=== PATIENT | female | born 1930 | race Caucasian/White ===

== ENCOUNTER 2020-11-17 19:01 | Inpatient (IN) | payer MEDICARE, BC ==
[~2020-11-17] VITALS: Ht 160 cm; Wt 45.3 kg
[2020-11-17] MEDS ORDERED: IV RINGERS SOLUTION,LACTATED 1,000 ML IV SCH (19:15)
--- NOTE | 2020-11-17 20:20 | RAD ---
Examination: CT head and cervical spine without contrast CT HEAD INDICATION: Reason: fall, on anticoag. syncope COMPARISON: None Available. Exposure: One or more of the following individualized dose reduction techniques were utilized for thi s examination: 1. Automated exposure control 2. Adjustment of the mA and/or kV according to patient size 3. Use of iterative reconstruction technique TECHNIQUE: 5 mm contiguous axial images were obtained from the skull base to the vertex in both bone and soft tissue algorithm. FINDINGS: No abnormal attenuation within the brain parenchyma. No evidence of acute intracranial hemorrhage. No extra-axial fluid collections. No mass effect or midline shift. Ventricular size is appropriate. Basal cisterns are patent. No fractures identified.Posey-white differentiation is preserved.Globes and orbits are within normal l imits. Paranasal sinuses and mastoid air cells are clear. IMPRESSION: No acute intracranial findings. CT CERVICAL SPINE INDICATION: Reason: fall, on anticoag. syncope COMPARISON: None Available. Technique: 2.5 mm contiguous axial images were obtained from the skull base through the cervicothorac ic junction in both bone and soft tissue algorithm. Additional sagittal and coronal reconstructions were also performed. FINDINGS: Vertebral body height and alignment are maintained. Cervical lordosis is preserved. The l ateral masses of C1 are aligned upon C2. No fractures identified. The bony canal is patent throughout. Moderate intervertebral disc height loss identified in the cervical spine particularly at C5-C6, C6-C 7 vertebral levels. The paraspinous soft tissues are unremarkable. Visualized intracranial contents are unremarkable. L indu apices are clear. IMPRESSION: 1. No acute fracture cervical spine. Correlate clinically. 2. Moderate degenerative changes cervical spine most at C5-C6, C6-C7 vertebral levels. Electronically signed by: Laureano Hamilton MD (11/17/2020 8:18 PM) [email or web address]
--- NOTE | 2020-11-17 20:23 | PHYS DOC ---
Past History Past Medical History: Anxiety, Arthritis, CAD, CHF, Renal Disease, Other Past Medical History Chronic pain General Adult EDM: Chief Complaint: NEURO SYMPTOMS/DEFICITS HPI: HPI: ".. I fell yesterday... hit my head.... here on Rt.... and tripped again to day.. and fell...".. "My Lt knee hurts.. this Lt shoulder hurts.. but they hurt before.. just hurt more now.. " " My family sent me in...".. " I do fall a lot...".. " I am just so weak any more...".. I ve been a lot more short of breath too..." Patient is a 89 year old female who presents with above hx and complaints fall daily the last two days. Pt. did strike head on both falls. Patient denies any loss of consciousness with the head injuries. Patient has left shoulder and left knee pain. Pain is more than the chronic pain she has in these joints. Denies any syncope or disability prior to the fall. States falls were because combination of trip and general weakness. Patient complaining of increased weakness particularly last 2 days and increased dyspnea. Patient normally follows locally with Dr. Diaz. Patient denies any specific ill contacts recently. No recent travel outside the [place] area. Patient denies any immunosuppression. Patient has history of chronic degenerative joint changes particularly in the knees and shoulders. Patient monitor on arrival shows tachycardia that KCl premature atrial contractions and PVCs. Patient reportedly has had extensive med intolerance/allergy list which was not available on arriv al to the emergency department. Patient does have multiple areas of contusion in different stages of healing. ( Suspect pt. falls more than she admits ). Review of Systems: Review of Systems: Constitutional: Denies fever or chills Eyes: Denies change in visual acuity HENT: Denies nasal congestion or sore throat Respiratory: Complains of a nonproductive cough and shortness of breath Cardiovascular: Denies chest pain or edema GI: Denies abdominal pain, nausea, vomiting, bloody stools or diarrhea : Denies dysuria Musculoskeletal: Complains of generalized back pain and joint pain. Increased pain in left shoulder and left knee tonight Integument: Denies rash Neurologic: Denies headache, focal weakness or sensory changes . Complains of generalized weakness Endocrine: Denies polyuria or polydipsia Lymphatic: Denies swollen glands Psychiatric: Denies depression or anxiety Family History: Family History: Not currently available Current Medications: Current Meds: No current med list available on presentation Current Medications Medications (Trade) Dose Ordered Sig/[place] Start Time Stop Time Status Last Admin Dose Admin Lactated Ringer's 1,000 ml @ 100 mls/hr Q10H 11/17/20 19:15 11/18/20 05:14 UNV Allergies: Allergies: Reportedly extensive allergies and sensitivities to drugs-currently is not currently available Physical Exam: PE: Constitutional: Moderate acute distress, chronically ill and appearance. [] HENT: Normocephalic, contusion to right side of head-reportedly 2 days old, bilateral external ears normal, oropharynx moist, no oral exudates, nose normal. [] Eyes: PERRLA, EOMI, conjunctiva normal, no discharge. [] Neck: Decreased range of motion, some mild upper neck tenderness, supple, no stridor. [] JVD in the sitting position. Cardiovascular: Tachycardia heart rate irregular r rhythm, no murmur [] PMI to the left Lungs & Thorax: Bilateral breath sounds equal at apex with scattered wheezes and bilateral lateral basilar crackles on auscultation [] Abdomen: Bowel sounds decreased, soft, no tenderness, no masses, no pulsatile masses. Distended Skin: Warm, dry, no erythema, no rash. Poor turgor. Multiple areas of contusions which appear to be at different stages of healing. Back: No tenderness, no CVA tenderness. [] Extremities: Particular tenderness in left shoulder and left knee tenderness, no cyanosis, no clubbing, limits range of motion due to pain. Does have crepitation on movement of both shoulders and knees. Localizes primary area of discomfort however in left shoulder and left knee. Obvious arthritic changes and degenerative joint changes Neurologic: Alert and oriented X 3, moves all extremities on request, does appear to have distal sensory, no gross focal deficits noted. [] Psychologic: Affect argumentative, uncooperative on occasion, angry at times, stating she should not have come in,, mood depressed affect EKG: EKG: My interpretation EKG shows a sinus rhythm at 97 bpm does have atrial premature complexes bimodal P waves, left axis, fascicular block, prolonged QT interval at 374 ms and QTC is 479 ms . Abnormal -could not find a previous comparison EKG [] Radiology/Procedures: Radiology/Procedures: [address] [address] IMAGING REPORT Signed PATIENT: NEGRO SWANN ACCOUNT: [id number] : 1930 LOCATION: ER AGE: 89 SEX: F EXAM STATUS: REG ER ORD. PHYSICIAN: JACKELYN KEITH MD REASON: fall, on anticoag. ? syncope PROCEDURE: CT HEAD AND CERVICAL SPINE WO Examination: CT head and cervical spine without contrast CT HEAD INDICATION: Reason: fall, on anticoag. syncope COMPARISON: None Available. Exposure: One or more of the following individualized dose reduction techniques were utilized for this examination: 1. Automated exposure control 2. Adjustment of the mA and/or kV according to patient size 3. Use of iterative reconstruction technique TECHNIQUE: 5 mm contiguous axial images were obtained from the skull base to the vertex in both bone and soft tissue algorithm. FINDINGS: No abnormal attenuation within the brain parenchyma. No evidence of acute intracranial hemorrhage. No extra-axial fluid collections. No mass effect or midline shift. Ventricular size is appropriate. Basal cisterns are patent. No fractures identified.Posey-white differentiation is preserved.Globes and orbits are within normal limits. Paranasal sinuses and mastoid air cells are clear. IMPRESSION: No acute intracranial findings. CT CERVICAL SPINE INDICATION: Reason: fall, on anticoag. syncope COMPARISON: None Available. Technique: 2.5 mm contiguous axial images were obtained from the skull base through the cervicothoracic junction in both bone and soft tissue algorithm. Additional sagittal and coronal reconstructions were also performed. FINDINGS: Vertebral body height and alignment are maintained. Cervical lordosis is preserved. The lateral masses of C1 are aligned upon C2. No fractures identified. The bony canal is patent throughout. Moderate intervertebral disc height loss identified in the cervical spine pa rticularly at C5-C6, C6-C7 vertebral levels. The paraspinous soft tissues are unremarkable. Visualized intracranial contents are unremarkable. Lung apices are clear. IMPRESSION: 1. No acute fracture cervical spine. Correlate clinically. 2. Moderate degenerative changes cervical spine most at C5-C6, C6-C7 vertebral levels. Electronically signed by: Laureano Hamilton MD (11/17/2020 8:18 PM) [id number] DICTATED AND SIGNED BY: LAUREANO HAMILTON MD DATE: 11/17/202009 CC: LEOBARDO DIAZ MD; JACKELYN KEITH MD ~MTH0 [address] [address] IMAGING REPORT Signed PATIENT: NEGRO SWANN ACCOUNT: [id number] : 1930 LOCATION: ER AGE: 89 SEX: F EXAM STATUS: REG ER ORD. PHYSICIAN: JACKELYN KEITH MD REASON: fall, pain PROCEDURE: PORTABLE CHEST 1V EXAM: CHEST 1 VIEW History: Fall, pain COMPARISON: None available. TECHNIQUE: Single portable radiograph of the chest FINDINGS: The cardiac silhouette is unremarkable. The lungs are clear bilaterally. The costophrenic sulci are clear and well demarcated. IMPRESSION: No radiographic evidence of an acute cardiopulmonary process. Electronically signed by: Laureano Hamilton MD (11/17/2020 8:26 PM) [id number] DICTATED AND SIGNED BY: LAUREANO HAMILTON MD DATE: 11/17/202023 CC: LEOBARDO DIAZ MD; JACKELYN KEITH MD ~MTH0 0 [][address] [address] IMAGING REPORT Signed PATIENT: NEGRO SWANN ACCOUNT: [id number] : 1930 LOCATION: ER AGE: 89 SEX: F EXAM STATUS: REG ER ORD. PHYSICIAN: JACKELYN KEITH MD REASON: fall, pain PROCEDURE: SHOULDER 2+V LEFT Examination: 2 views of the left shoulder and 3 views of the left knee HISTORY: History of fall, pain COMPARISON: None available FINDINGS: The humerus head is within the glenoid. There is faint calcification identified in the rotator cuff region could be mild calcific tendinosis or soft tissue calcification. There is no acute fracture identified. The alignment of the knee joint grossly appears unremarkable. There is moderate joint space loss identified in the medial, lateral compartment femoral comp artments. There is no acute fracture or dislocation identified IMPRESSION: 1. Faint calcification identified in the rotator cuff region could be mild calcific tendinosis or soft tissue calcification. 2. Moderate tricompartmental degenerative changes knee joint. 3. No acute osseous findings. Electronically signed by: Laureano Hamilton MD (11/17/2020 8:24 PM) [email or web address] DICTATED AND SIGNED BY: LAUREANO HAMILTON MD DATE: 11/17/202019 CC: LEOBARDO DIAZ MD; JACKELYN KEITH MD ~MTH0 0 Heart Score: HEART Score for Chest Pain: HEART Score for Chest Pain Response (Comments) Value History Moderately Suspicious 1 ECG Nonspecific Repolarizatio 1 Age > 65 2 Risk Factors 1 or 2 Risk Factors 1 Troponin >1-<3x Normal Limit 1 Total 6 Risk Factors: Risk Factors: DM, Current or recent (<one month) smoker, HTN, HLP, family history of CAD, obesity. Risk Scores: Score 0 - 3: 2.5% MACE over next 6 weeks - Discharge Home Score 4 - 6: 20.3% MACE over next 6 weeks - Admit for Clinical Observation Score 7 - 10: 72.7% MACE over next 6 weeks - Early Invasive Strategies Course & Med Decision Making: Course & Med Decision Making Pertinent Labs and Imaging studies reviewed. (See chart for details) After discussing with Pt. agreed to be admit for further tx and evaluation. Discussed presentation, testing and treatment plan with . Will admit to his service with cardiology consult. Impression: 1. Falling/ Weakness 2. CHF-diastolic dysfunction BNP 19,978 3. Renal insufficiency BUN 37 creatinine 1.4 4. Elevated CK and troponin 1733/ Trop 2.788- Repeat 2.706 5. DJD 6. Contusions 7. DC rule out 8. Elevated D-dimer 1.20 [] Dragon Disclaimer: Dragon Disclaimer: This electronic medical record was generated, in whole or in part, using a voice recognition dictation system. Departure Departure: Referrals: LEOBARDO DIAZ MD (PCP) [place] Disclaimer This chart was dictated in whole or in part using Voice Recognition software in a busy, high-work load, and often noisy Emergency Department environment. It may contain unintended and wholly unrecognized errors or omissions. JACKELYN KEITH MD Nov 17, 2020 20:23
--- NOTE | 2020-11-17 20:27 | RAD ---
Examination: 2 views of the left shoulder and 3 views of the left knee HISTORY: History of fall, pain COMPARISON: None available FINDINGS: The humerus head is within the glenoid. There is faint calcification identified in the rotator cuff r egion could be mild calcific tendinosis or soft tissue calcification. There is no acute fracture iden tified. The alignment of the knee joint grossly appears unremarkable. There is moderate joint space loss iden tified in the medial, lateral compartment femoral compartments. There is no acute fracture or disloca tion identified IMPRESSION: 1. Faint calcification identified in the rotator cuff region could be mild calcific tendinosis or so ft tissue calcification. 2. Moderate tricompartmental degenerative changes knee joint. 3. No acute osseous findings. Electronically signed by: Laureano Hamilton MD (11/17/2020 8:24 PM) [id number]
--- NOTE | 2020-11-17 20:29 | RAD ---
EXAM: CHEST 1 VIEW History: Fall, pain COMPARISON: None available. TECHNIQUE: Single portable radiograph of the chest FINDINGS: The cardiac silhouette is unremarkable. The lungs are clear bilaterally. The costophrenic sulci are clear and well demarcated. IMPRESSION: No radiographic evidence of an acute cardiopulmonary process. Electronically signed by: Laureano Hamilton MD (11/17/2020 8:26 PM) [email or web address]
[2020-11-17 20:40] LABS: BASO # 0.1 x10^3/uL (0.0-0.2); BASO % 1 % (0-3); EOS % 0 % (0-3); HEMATOCRIT 38.8 % (36.0-47.0); LYMPH # 0.3 x10^3/uL (1.0-4.8); LYMPH % 5 % (24-48); MEAN CORPUSCULAR HEMOGLOBIN 30 pg (25-35); MEAN CORPUSCULAR HGB CONC 33 g/dL (31-37); MEAN CORPUSCULAR VOLUME 91 fL (79-100); MONO # 0.5 x10^3/uL (0.0-1.1); MONO % 8 % (0-9); NEUT # 5.1 x10^3uL (1.8-7.7); NEUT % 86 % (31-73); PLATELET COUNT 189 x10^3/uL (140-400); RED BLOOD COUNT 4.28 x10^6/uL (3.50-5.40); RED CELL DISTRIBUTION WIDTH 13.2 % (11.5-14.5)
[2020-11-17 20:45] LABS: CALCIUM 9.6 mg/dL (8.5-10.1); CREATININE 1.4 mg/dL (0.6-1.0); GFR 35.4; POTASSIUM 3.5 mmol/L (3.5-5.1)
[2020-11-17 21:01] LABS: ALBUMIN 4.1 g/dL (3.4-5.0); DIRECT BILIRUBIN 0.2 mg/dL (0.0-0.2); MAGNESIUM 2.2 mg/dL (1.8-2.4); TOTAL BILIRUBIN 0.6 mg/dL (0.2-1.0); TOTAL PROTEIN 8.9 g/dL (6.4-8.2)
[2020-11-17] MEDS ORDERED: FUROSEMIDE 40 MG/4 ML VIAL IVP ONE (23:15)
[2020-11-17] MEDS ORDERED: ONDANSETRON PF 4 MG/2 ML VIAL. IVP PRN (23:30)
[2020-11-17] MEDS ORDERED: ACETAMINOPHEN 325 MG TABLET PO PRN (23:30)
[2020-11-18 00:47] VITALS: BP 144/59
[2020-11-18] MEDS ORDERED: IPRATRPIUM/ALBUTEROL 0.5/2.5MG 3 ML NEBU. ONE (05:02)
[2020-11-18] MEDS: IPRATRPIUM/ALBUTEROL 0.5/2.5MG 3 ML NEBU. NEB SCH ×3 (05:06→15:45)
[2020-11-18 05:36] VITALS: BP 138/72
[2020-11-18] MEDS ORDERED: FUROSEMIDE 40 MG/4 ML VIAL IVP ONE (06:00)
[2020-11-18 06:36] LABS: BASO % 1 % (0-3); EOS % 0 % (0-3); HEMATOCRIT 33.9 % (36.0-47.0); HEMOGLOBIN 11.2 g/dL (12.0-15.5); LYMPH # 0.3 x10^3/uL (1.0-4.8); LYMPH % 8 % (24-48); MEAN CORPUSCULAR HEMOGLOBIN 30 pg (25-35); MEAN CORPUSCULAR HGB CONC 33 g/dL (31-37); MEAN CORPUSCULAR VOLUME 91 fL (79-100); MONO # 0.6 x10^3/uL (0.0-1.1); MONO % 13 % (0-9); NEUT # 3.5 x10^3uL (1.8-7.7); NEUT % 79 % (31-73); PLATELET COUNT 160 x10^3/uL (140-400); RED BLOOD COUNT 3.73 x10^6/uL (3.50-5.40); RED CELL DISTRIBUTION WIDTH 13.1 % (11.5-14.5); WHITE BLOOD COUNT 4.4 x10^3/uL (4.0-11.0)
[2020-11-18 06:43] LABS: CALCIUM 8.5 mg/dL (8.5-10.1); CREATININE 1.2 mg/dL (0.6-1.0); GFR 42.3; POTASSIUM 3.4 mmol/L (3.5-5.1)
[2020-11-18 07:08] LABS: % LYMPHS 6 % (24-48); % MONOS 5 % (0-10); % SEGS 89 % (35-66)
[2020-11-18 07:09] LABS: PLT ESTIMATE ADEQUATE (ADEQUATE)
[2020-11-18] MEDS ORDERED: PANT40TA6 PO (07:52)
[2020-11-18] MEDS ORDERED: NEBI10TA3 PO (07:52)
[2020-11-18] MEDS ORDERED: MEGE20TA3 PO (07:52)
[2020-11-18] MEDS ORDERED: GABA100C81 PO (07:52)
[2020-11-18] MEDS ORDERED: LOSA50TA86 PO (07:52)
[2020-11-18] MEDS ORDERED: PROP10DR3 EACHEYE (07:52)
[2020-11-18] MEDS ORDERED: POTA20TA4 PO (07:52)
[2020-11-18] MEDS ORDERED: APIX2.5T PO (07:52)
[2020-11-18] MEDS ORDERED: HYDR200T5 PO (07:52)
[2020-11-18] MEDS ORDERED: MELA3TAB43 PO (07:52)
[2020-11-18] MEDS ORDERED: CYCL1DRO EACHEYE (07:52)
[2020-11-18] MEDS ORDERED: ACET500T68 PO (07:52)
[2020-11-18] MEDS ORDERED: LIDO700A21 TP (07:52)
[2020-11-18] MEDS ORDERED: LIDOCAINE (700MG/PATCH) PATCH. TP PRN (08:15)
[2020-11-18] MEDS ORDERED: ACETAMINOPHEN 500 MG TABLET PO PRN (08:15)
[2020-11-18] MEDS: HYDROXYCHLOROQUINE 200 MG TABLET PO SCH ×2 (09:00→20:23)
[2020-11-18] MEDS ORDERED: APIXABAN 2.5 MG TABLET PO SCH ×2 (09:00)
[2020-11-18] MEDS: METOPROLOL TART IMMED RELEASE 50 MG TABLET PO SCH ×2 (09:00→20:23)
[2020-11-18] MEDS: PANTOPRAZOLE 40 MG TABLET. PO SCH (09:21)
[2020-11-18] MEDS: LOSARTAN 50 MG TABLET. PO SCH ×2 (09:22→20:22)
[2020-11-18] MEDS: cycloSPORINE 0.05% OPTH 1 DROP DROPERETTE OU SCH ×2 (09:22→20:22)
[2020-11-18] MEDS: GABAPENTIN 100 MG CAPSULE. PO SCH ×3 (09:22→20:23)
[2020-11-18] MEDS: ASPIRIN 325 MG TABLET PO SCH (09:22)
[2020-11-18] MEDS: BUMETANIDE 1 MG/4 ML VIAL. IVP SCH ×2 (09:22→14:00)
[2020-11-18] MEDS: POTASSIUM CHLORIDE 20 MEQ TABLET.ER. PO SCH ×2 (09:22→20:22)
[2020-11-18] MEDS ORDERED: POLYVINYL ALCOHOL 1.4% OPHTH SOLUTION 15ML BOTTLE. OU PRN (09:30)
[2020-11-18 10:36] VITALS: BP 126/53
[2020-11-18] MEDS ORDERED: HEPARIN for IV BOLUS 10,000 UNIT/10 ML VIAL. IV ONE (11:00)
[2020-11-18] MEDS ORDERED: HEPARIN for IV BOLUS 10,000 UNIT/10 ML VIAL. IV PRN (11:00)
[2020-11-18] MEDS ORDERED: HEPARIN 25,000UTS/250ML PREMIX 250 ML IV PRN (11:00)
[2020-11-18] MEDS ORDERED: ELECTROLYTE (NON-ICU) PROTOCOL. MC PRN (11:45)
[2020-11-18] MEDS ORDERED: SUCRALFATE 1 GM TABLET. PO ONE (13:00)
--- NOTE | 2020-11-18 13:34 | PDOC2 ---
CONSULT DOS: DATE: 11/18/20 TIME: 13:23 Reason for Consult: Elevated troponin level Referring Physician: Dr. Munoz Chief Complaint s/p Fall Source: Chart review, Patient Problem List Problems Medical Problems: (1) Myocardial decompensation Status: Acute (2) Weakness Status: Acute History of Present Illness 89-year-old female presented after she tripped and fell and hit her head. She apparently had another similar episode. She denied any dizziness or loss of consciousness and activated the falls to instability. She complained of pain right side of her forehead, left knee and left shoulder but denied any chest pain. She complained of generalized weakness but denied any orthopnea/PND or palpitations. Her troponin level was elevated prompting cardiology consultation. She denied any previous history of coronary artery disease but she stated that she followed Dr. Fournier for what looks like atrial fibrillation according to her description. Past Medical History Possible atrial fibrillation Hypertension Congestive heart failure, most likely chronic diastolic Chronic kidney disease Osteoarthritis Anxiety Family History not contributory Social History Patient is a non-smoker and a nondrinker Current Medications Current Medications Lactated Ringer's 1,000 ml @ 100 mls/hr Q10H IV Last administered on 11/17/20at 20:33; Start 11/17/20 at 19:15; Stop 11/18/20 at 05:14; Status DC Furosemide (Lasix) 40 mg 1X ONCE IVP ; Start 11/17/20 at 23:15; Stop 11/17/20 at 23:16; Status DC Ondansetron HCl (Zofran) 4 mg PRN Q4HRS PRN IVP NAUSEA/VOMITING; Start 11/17/20 at 23:30; Stop 11/18/20 at 23:29 Acetaminophen (Tylenol) 650 mg PRN Q4HRS PRN PO FEVER > 100.3'F; Start 11/17/20 at 23:30; Stop 11/18/20 at 09:18; Status DC Albuterol/ Ipratropium (Duoneb) 3 ml RTQID NEB Last administered on 11/18/20at 05:06; Start 11/18/20 at 08:00; Stop 11/19/20 at 07:59 Furosemide (Lasix) 40 mg 1X ONCE IVP ; Start 11/18/20 at 06:00; Stop 11/18/20 at 06:01; Status Cancel Aspirin (Rafi Aspirin) 81 mg [id number] PO Last administered on 11/18/20 09:22; Start 11/18/20 at 08:00 Apixaban (Eliquis) 2.5 mg BID PO Last administered on 11/18/20at 09:22; Start 11/18/20 at 09:00; Stop 11/18/20 at 11:07; Status DC Bumetanide (Bumex) 1 mg BID92 IVP Last administered on 11/18/20at 09:22; Start 11/18/20 at 09:00 Albuterol/ Ipratropium (Duoneb) 3 ml STK-MED ONCE .ROUTE ; Start 11/18/20 at 05:02; Stop 11/18/20 at 05:02; Status DC Acetaminophen (Tylenol) 1,000 mg PRN BID PRN PO PAIN; Start 11/18/20 at 08:15 Apixaban (Eliquis) 2.5 mg DAILY PO ; Start 11/18/20 at 09:00; Stop 11/18/20 at 09:56; Status DC Cyclosporine (Restasis) 1 drop BID OU Last administered on 11/18/20at 09:22; Start 11/18/20 at 09:00 Gabapentin (Neurontin) 100 mg TID PO Last administered on 11/18/20at 09:22; Start 11/18/20 at 09:00 Hydroxychloroquine Sulfate (Plaquenil) 200 mg BID PO ; Start 11/18/20 at 09:00 Lidocaine (Lidoderm) 1 patch PRN DAILY PRN TP PAIN; Start 11/18/20 at 08:15 Losartan Potassium (Cozaar) 50 mg BID PO Last administered on 11/18/20at 09:22; Start 11/18/20 at 09:00 Pantoprazole Sodium (Protonix) 40 mg DAILYAC PO Last administered on 11/18/20at 09:21; Start 11/18/20 at 09:00 Potassium Chloride (Klor-Con) 20 meq BID PO Last administered on 11/18/20at 09:22; Start 11/18/20 at 09:00 Megestrol Acetate (Megace) 20 mg TID PO ; Start 11/18/20 at 14:00 Melatonin (Melatonin) 3 mg QHS PO ; Start 12/27/20 at 21:00 Metoprolol Tartrate (Lopressor) 50 mg BID PO Last administered on 11/18/20at 09:00; Start 11/18/20 at 09:00 Artificial Tears (Artificial Tears) 1 drop PRN QID PRN OU DRY EYE; Start 11/18/20 at 09:30 Heparin Sodium/ Dextrose 250 ml @ 0 mls/hr CONT PRN IV SEE I/O RECORD Last administered on 11/18/20at 11:41; Start 11/18/20 at 11:00 Heparin Sodium (Porcine) (Heparin Sodium) 2,700 unit 1X ONCE IV Last administered on 11/18/20at 11:39; Start 11/18/20 at 11:00; Stop 11/18/20 at 11:04; Status DC Heparin Sodium (Porcine) (Heparin Sodium) 1,125 unit PRN Q6HRS PRN IV FOR PTT LESS THAN 24 SECONDS; Start 11/18/20 at 11:00 Sucralfate (Carafate) 1 gm QID ONCE PO ; Start 11/18/20 at 13:00; Stop 11/18/20 at 13:01; Status DC Info (Non-Icu Electrolyte Protocol) 1 ea CONT PRN PRN MC PER PROTOCOL; Start 11/18/20 at 11:45 Active Scripts Active Reported Lidocaine PATCH (Lidocaine) 1 Each Adh..patch 1 Each TP PRN DAILY PRN REMOVE AFTER 12 HOURS Systane Ultra 0.4-0.3% Eye Drp (Propylene Glycol/Peg 400) 10 Ml Drops 1 Drop EACHEYE QIDPRN PRN Restasis (Cyclosporine) 1 Each Droperette 1 Drop EACHEYE BID Melatonin 3 Mg Tab.rapdis 1 Tab PO QHS 30 Days Megestrol Acetate 20 Mg Tablet 20 Mg PO TID Hydroxychloroquine Sulfate 200 Mg Tablet 200 Mg PO BID Neurontin (Gabapentin) 100 Mg Capsule 100 Mg PO TID Acetaminophen 500 Mg Tablet 1,000 Mg PO PRN BID PRN Eliquis (Apixaban) 2.5 Mg Tablet 2.5 Mg PO DAILY Bystolic (Nebivolol Hcl) 10 Mg Tablet 1 Tab PO DAILY Pantoprazole Sodium 40 Mg Tablet.dr 40 Mg PO DAILY Klor-Con M20 (Potassium Chloride) 20 Meq Tab.er.prt 20 Meq PO BID Cozaar (Losartan Potassium) 50 Mg Tablet 50 Mg PO BID Allergies: Coded Allergies: Sulfa (Sulfonamide Antibiotics) (Verified Allergy, Unknown, 11/17/20) amoxicillin (Verified Allergy, Unknown, 11/17/20) clavulanic acid (Verified Allergy, Unknown, 11/17/20) clindamycin (Verified Allergy, Unknown, 11/17/20) diltiazem (Verified Allergy, Unknown, 11/17/20) famotidine (Verified Allergy, Unknown, 11/17/20) furosemide (Verified Allergy, Unknown, 11/17/20) hydrochlorothiazide (Verified Allergy, Unknown, 11/17/20) hydrocodone (Verified Allergy, Unknown, 11/17/20) minocycline (Verified Allergy, Unknown, 11/17/20) omeprazole (Verified Allergy, Unknown, 11/17/20) oxaprozin (Verified Allergy, Unknown, 11/17/20) oxycodone (Verified Allergy, Unknown, 11/17/20) propoxyphene (Verified Allergy, Unknown, 11/17/20) rivaroxaban (Verified Allergy, Unknown, 11/17/20) sulindac (Verified Allergy, Unknown, 11/17/20) tramadol (Verified Allergy, Unknown, 11/17/20) verapamil (Verified Allergy, Unknown, 11/17/20) Uncoded Allergies: antitussive/antihistamine (Allergy, Unknown, 11/17/20) General: YES: Malaise PSYCHOLOGICAL ROS: No: Hallucinations Eyes: No: Loss of vision HEENT: No: Epistaxis Respiratory: No: Hemoptysis, Shortness of breath Cardiovascular: No: Chest Pain, Palpitations Gastrointestinal: No: Vomiting Neurological: No: Seizures Skin: No: Rash General: Alert, No acute distress HEENT: Other (contusion on forehead) Lungs: Clear to auscultation Heart: Regular rate Abdomen: Soft Extremities: No edema Psych/Mental Status: Mood NL VITALS Vital Signs Date Time Temp Pulse Resp B/P (MAP) Pulse Ox O2 Delivery O2 Flow Rate FiO2 11/18/20 10:36 97.3 78 18 126/53 (77) 93 Room Air Labs Laboratory Tests Test 11/17/20 20:15 11/17/20 22:10 11/18/20 02:00 11/18/20 06:10 White Blood Count 6.0 x10^3/uL (4.0-11.0) 4.4 x10^3/uL (4.0-11.0) Red Blood Count 4.28 x10^6/uL (3.50-5.40) 3.73 x10^6/uL (3.50-5.40) Hemoglobin 13.0 g/dL (12.0-15.5) 11.2 g/dL (12.0-15.5) Hematocrit 38.8 % (36.0-47.0) 33.9 % (36.0-47.0) Mean Corpuscular Volume 91 fL (79-100) 91 fL (79-100) Mean Corpuscular Hemoglobin 30 pg (25-35) 30 pg (25-35) Mean Corpuscular Hemoglobin Concent 33 g/dL (31-37) 33 g/dL (31-37) Red Cell Distribution Width 13.2 % (11.5-14.5) 13.1 % (11.5-14.5) Platelet Count 189 x10^3/uL (140-400) 160 x10^3/uL (140-400) Neutrophils (%) (Auto) 86 % (31-73) 79 % (31-73) Lymphocytes (%) (Auto) 5 % (24-48) 8 % (24-48) Monocytes (%) (Auto) 8 % (0-9) 13 % (0-9) Eosinophils (%) (Auto) 0 % (0-3) 0 % (0-3) Basophils (%) (Auto) 1 % (0-3) 1 % (0-3) Neutrophils # (Auto) 5.1 x10^3uL (1.8-7.7) 3.5 x10^3uL (1.8-7.7) Lymphocytes # (Auto) 0.3 x10^3/uL (1.0-4.8) 0.3 x10^3/uL (1.0-4.8) Monocytes # (Auto) 0.5 x10^3/uL (0.0-1.1) 0.6 x10^3/uL (0.0-1.1) Eosinophils # (Auto) 0.0 x10^3/uL (0.0-0.7) 0.0 x10^3/uL (0.0-0.7) Basophils # (Auto) 0.1 x10^3/uL (0.0-0.2) 0.0 x10^3/uL (0.0-0.2) Prothrombin Time 9.7 SEC (9.4-11.4) Prothromb Time International Ratio 0.9 (0.9-1.1) Activated Partial Thromboplast Time 24 SEC (23-33) D-Dimer (Lucy) 1.20 mg/L (0.00-0.50) Sodium Level 126 mmol/L (136-145) 128 mmol/L (136-145) Potassium Level 3.5 mmol/L (3.5-5.1) 3.4 mmol/L (3.5-5.1) Chloride Level 89 mmol/L (98-107) 93 mmol/L (98-107) Carbon Dioxide Level 23 mmol/L (21-32) 21 mmol/L (21-32) Anion Gap 14 (6-14) 14 (6-14) Blood Urea Nitrogen 33 mg/dL (7-20) 38 mg/dL (7-20) Creatinine 1.4 mg/dL (0.6-1.0) 1.2 mg/dL (0.6-1.0) Estimated GFR (Cockcroft-Gault) 35.4 42.3 Glucose Level 87 mg/dL (70-99) 74 mg/dL (70-99) Calcium Level 9.6 mg/dL (8.5-10.1) 8.5 mg/dL (8.5-10.1) Magnesium Level 2.2 mg/dL (1.8-2.4) Total Bilirubin 0.6 mg/dL (0.2-1.0) Direct Bilirubin 0.2 mg/dL (0.0-0.2) Aspartate Amino Transf (AST/SGOT) 150 U/L (15-37) Alanine Aminotransferase (ALT/SGPT) 46 U/L (14-59) Alkaline Phosphatase 104 U/L (46-116) Creatine Kinase 1733 U/L (26-192) Troponin I Quantitative 2.788 ng/mL (0-0.055) 2.706 ng/mL (0-0.055) 1.807 ng/mL (0-0.055) ZM-Phs-O-Type Natriuretic Peptide 50083 pg/mL (0-449) Total Protein 8.9 g/dL (6.4-8.2) Albumin 4.1 g/dL (3.4-5.0) Lipase 100 U/L (73-393) Thyroid Stimulating Hormone (TSH) 3.530 uIU/mL (0.358-3.740) Segmented Neutrophils % 89 % (35-66) Lymphocytes % 6 % (24-48) Monocytes % 5 % (0-10) Platelet Estimate Adequate (ADEQUATE) Test 11/18/20 11:15 Prothrombin Time 10.2 SEC (9.4-11.4) Prothromb Time International Ratio 1.0 (0.9-1.1) Activated Partial Thromboplast Time 25 SEC (23-33) Assessment/Plan 1. Non-STEMI with troponin peaking at 2.7. This could be secondary to demand ischemia but CAD cannot be ruled out. Due to her frailty and age, the options of conservative management versus cardiac catheterization were discussed and she preferred medical management. She is currently chest pain-free. EKG did not show any acute changes. Continue aspirin, metoprolol and start heparin infusion per protocol to be continued for at least 24 hours. Check 2D echo to assess LV systolic function. 2. Paroxysmal atrial fibrillation, presently in sinus rhythm. Patient is on low-dose Eliquis for stroke prophylaxis. 3. Generalized weakness, frequent falls without any syncope. Treat per PCP. PT/OT. 4. Chronic diastolic heart failure, appears to be clinically well compensated. Her BNP level is elevated but chest x-ray did not show any acute changes and she does not have any edema. 5. Hypertension: Controlled 6. Chronic kidney disease Thank you for your consultation MONIKA SULLIVAN MD Nov 18, 2020 13:34
[2020-11-18] MEDS: MEGESTROL 40 MG TABLET. PO SCH ×2 (14:00→20:23)
[2020-11-18 15:18] VITALS: BP 104/64
[2020-11-18 19:02] VITALS: BP 188/78
--- NOTE | 2020-11-18 19:13 | HP ---
ADMIT DATE: HISTORY OF PRESENT ILLNESS: An 89-year-old female apparently has been falling at home, multiple bruises to her head. She was brought in through the Emergency Room from which the patient was admitted for further evaluation. She did have some striking elevations of her CPK and Dr. Narayan was kind enough to review the patient, feels the patient may have had a non-STEMI. The patient otherwise denies chest pain per se, but has been feeling weak and tripping over things, falling and increased dyspnea. The patient also is on some immunosuppressive drugs for multiple other medical issues. The patient was admitted for further evaluation and treatment. PAST MEDICAL HISTORY: Systemic lupus erythematosus, hypertension essential, osteopenia, had radiation to her face for acne as a child. ALLERGIES: CODEINE, ____, DAYPRO, MINOCYCLINE, AMOXICILLIN, PERCOCET, DARVOCET, HYDROCODONE, TRAMADOL, HISTUSSIN; LASIX, RASH; HYDROCHLOROTHIAZIDE, RASH; AMLODIPINE, NAUSEA; ACCUPRIL, NAUSEA; PRILOSEC, ERYTHEMA MULTIFORME; XARELTO, ____, CLONIDINE, DILTIAZEM, CLINDAMYCIN AND POSSIBLY EVEN PROTONIX. PAST SURGICAL HISTORY: Back surgery, slipped disk, ulcer, torn tendon, biopsy of the left side of the tongue, hip ligament tear as well. The patient has also had chronic history of low sodium. FAMILY HISTORY: Father with cancer, mother with heart attack, heart disease ____ and cancer in the family. The patient is . SOCIAL HISTORY: Denies smoking, alcohol or drug use. Lives at home. At the present time, does have family members to help her there. REVIEW OF SYSTEMS: The patient denies any headaches, although she has multiple abrasions to her head. She denies any chest pain, perhaps maybe some fluttering, but other than that denies actual shortness of breath with dyspnea with exertion and generalized weakness. The patient in turn denies any problem with her bowels or bladder. NEUROLOGIC: The patient says she is basically stable. The patient is a full code. HOME MEDICATIONS: Include that of hydroxychloroquine sulfate 200 mg b.i.d., Eliquis 2.5 daily, Bystolic 10 mg daily; losartan, Cozaar 50 mg; Tylenol, gabapentin 100 mg t.i.d. for neuropathy, potassium chloride 20 mEq, cyclosporine, Restasis to both eyes 1 drop, propylene glycol, Protonix, sodium, megestrol acetate, lidocaine, melatonin for bedtime, otherwise stable. PHYSICAL EXAMINATION: GENERAL: This is a very pleasant white female. VITAL SIGNS: Blood pressure 105/60, respiratory rate 20, pulse 80, afebrile. The patient's weight approximately 45 kilos with a BMI of 17.6, and height of 160 cm. The patient is alert and oriented. HEENT: The patient's head is traumatic primarily over the right forehead, multiple bruises and ecchymosis are noted. There is no ecchymosis around the eyes, which were PERRLA, EOMI and sclerae clear. Mouth and throat were normal. NECK: Supple without JVD, carotid bruits or thyromegaly. LUNGS: Diminished throughout, poor movement of air, but basically clear. CARDIOVASCULAR: Regular sinus rhythm. ABDOMEN: Soft, nontender, scaphoid. EXTREMITIES: No clubbing, cyanosis, nor edema. NEUROLOGIC: Alert and oriented, answering questions well. Speech spontaneous and appropriate. Cranial nerves baseline as indicated. LABORATORY DATA: The patient's white count 4.4, hemoglobin 11 and 33. Sodium 128, which is not uncommon for this patient and potassium of 3.4. BUN and creatinine of 38 and 1.2, GFR of 42. Troponins as high as 2.78, it has come down to 1.8. TSH of 3.5. BNP of 20,000. Total protein 8.9. Initial sodium was 126, seen by Dr. Narayan, believes a non-STEMI in process. IMPRESSION: Non-ST segment elevation myocardial infarction, multiple falls with head contusion. CT scan of the head was unremarkable with no signs of bleed. No intracranial findings, no fractures were noted. Cervical spine CT scan showed degenerative changes primarily at C5-C6, C6-C7. Chest x-ray was unremarkable. The patient's sodium was low as noted 126 to 129. She has a chronic history of SIADH, possibly related to her systemic lupus erythematosus. She is on chronic anticoagulation therapy for that. She did have an elevated creatine kinase of approximately rounded off to 2000. D-dimer elevated of course from the falls, but she is on Eliquis. Monitor her for any signs of bleed. PLAN: Continue to monitor carefully with Dr. Naaryan and make further adjustments on medication as indicated. LEOBARDO DIAZ MD DR: ERROL/shaheen JOB#: [id number] / [id number]
[2020-11-18] MEDS: MELATONIN 3 MG TABLET PO SCH (20:23)
[2020-11-18 22:47] VITALS: BP 144/84
[2020-11-19 06:00] VITALS: BP 165/88
[2020-11-19 06:44] LABS: BASO # 0.1 x10^3/uL (0.0-0.2); BASO % 1 % (0-3); EOS % 0 % (0-3); HEMATOCRIT 33.2 % (36.0-47.0); LYMPH # 0.3 x10^3/uL (1.0-4.8); LYMPH % 3 % (24-48); MEAN CORPUSCULAR HEMOGLOBIN 30 pg (25-35); MEAN CORPUSCULAR HGB CONC 33 g/dL (31-37); MEAN CORPUSCULAR VOLUME 91 fL (79-100); MONO # 0.6 x10^3/uL (0.0-1.1); MONO % 5 % (0-9); NEUT # 10.8 x10^3uL (1.8-7.7); NEUT % 91 % (31-73); PLATELET COUNT 170 x10^3/uL (140-400); RED BLOOD COUNT 3.66 x10^6/uL (3.50-5.40); RED CELL DISTRIBUTION WIDTH 13.3 % (11.5-14.5); WHITE BLOOD COUNT 11.8 x10^3/uL (4.0-11.0)
[2020-11-19 06:52] LABS: CALCIUM 8.1 mg/dL (8.5-10.1); CREATININE 1.2 mg/dL (0.6-1.0); GFR 42.3; POTASSIUM 3.4 mmol/L (3.5-5.1)
[2020-11-19 07:50] LABS: % BANDS 4 % (0-9); % LYMPHS 2 % (24-48); % MONOS 2 % (0-10); % SEGS 92 % (35-66); TOXIC GRANULATION PRESENT; TOXIC VACUOLATION PRESENT
[2020-11-19 07:51] LABS: OVALOCYTES PRESENT
[2020-11-19 07:52] LABS: PLT ESTIMATE ADEQUATE (ADEQUATE)
--- NOTE | 2020-11-19 07:58 | PDOC ---
CARDIO Progress Notes Date & Time Date of Service DATE: 11/19/20 TIME: 07:46 Time of Evaluation 07:46 Subjective Notes No chest pain, shortness of breath, dizziness, diaphoresis, or nausea/vomiting. Vitals Vitals Vital Signs Date Time Temp Pulse Resp B/P (MAP) Pulse Ox O2 Delivery O2 Flow Rate FiO2 11/19/20 06:00 97.3 82 18 165/88 (113) 91 Room Air Weight Weight [ ] Input and Output I.O. Intake and Output 11/19/20 07:00 Intake Total 580 ml Balance 580 ml Intake Oral 580 ml # Voids 7 # Bowel Movements 1 Laboratory Labs Laboratory Tests Test 11/17/20 20:15 11/17/20 22:10 11/18/20 02:00 11/18/20 06:10 White Blood Count 6.0 x10^3/uL (4.0-11.0) 4.4 x10^3/uL (4.0-11.0) Red Blood Count 4.28 x10^6/uL (3.50-5.40) 3.73 x10^6/uL (3.50-5.40) Hemoglobin 13.0 g/dL (12.0-15.5) 11.2 g/dL (12.0-15.5) Hematocrit 38.8 % (36.0-47.0) 33.9 % (36.0-47.0) Mean Corpuscular Volume 91 fL (79-100) 91 fL (79-100) Mean Corpuscular Hemoglobin 30 pg (25-35) 30 pg (25-35) Mean Corpuscular Hemoglobin Concent 33 g/dL (31-37) 33 g/dL (31-37) Red Cell Distribution Width 13.2 % (11.5-14.5) 13.1 % (11.5-14.5) Platelet Count 189 x10^3/uL (140-400) 160 x10^3/uL (140-400) Neutrophils (%) (Auto) 86 % (31-73) 79 % (31-73) Lymphocytes (%) (Auto) 5 % (24-48) 8 % (24-48) Monocytes (%) (Auto) 8 % (0-9) 13 % (0-9) Eosinophils (%) (Auto) 0 % (0-3) 0 % (0-3) Basophils (%) (Auto) 1 % (0-3) 1 % (0-3) Neutrophils # (Auto) 5.1 x10^3uL (1.8-7.7) 3.5 x10^3uL (1.8-7.7) Lymphocytes # (Auto) 0.3 x10^3/uL (1.0-4.8) 0.3 x10^3/uL (1.0-4.8) Monocytes # (Auto) 0.5 x10^3/uL (0.0-1.1) 0.6 x10^3/uL (0.0-1.1) Eosinophils # (Auto) 0.0 x10^3/uL (0.0-0.7) 0.0 x10^3/uL (0.0-0.7) Basophils # (Auto) 0.1 x10^3/uL (0.0-0.2) 0.0 x10^3/uL (0.0-0.2) Prothrombin Time 9.7 SEC (9.4-11.4) Prothromb Time International Ratio 0.9 (0.9-1.1) Activated Partial Thromboplast Time 24 SEC (23-33) D-Dimer (Lucy) 1.20 mg/L (0.00-0.50) Sodium Level 126 mmol/L (136-145) 128 mmol/L (136-145) Potassium Level 3.5 mmol/L (3.5-5.1) 3.4 mmol/L (3.5-5.1) Chloride Level 89 mmol/L (98-107) 93 mmol/L (98-107) Carbon Dioxide Level 23 mmol/L (21-32) 21 mmol/L (21-32) Anion Gap 14 (6-14) 14 (6-14) Blood Urea Nitrogen 33 mg/dL (7-20) 38 mg/dL (7-20) Creatinine 1.4 mg/dL (0.6-1.0) 1.2 mg/dL (0.6-1.0) Estimated GFR (Cockcroft-Gault) 35.4 42.3 Glucose Level 87 mg/dL (70-99) 74 mg/dL (70-99) Calcium Level 9.6 mg/dL (8.5-10.1) 8.5 mg/dL (8.5-10.1) Magnesium Level 2.2 mg/dL (1.8-2.4) Total Bilirubin 0.6 mg/dL (0.2-1.0) Direct Bilirubin 0.2 mg/dL (0.0-0.2) Aspartate Amino Transf (AST/SGOT) 150 U/L (15-37) Alanine Aminotransferase (ALT/SGPT) 46 U/L (14-59) Alkaline Phosphatase 104 U/L (46-116) Creatine Kinase 1733 U/L (26-192) Troponin I Quantitative 2.788 ng/mL (0-0.055) 2.706 ng/mL (0-0.055) 1.807 ng/mL (0-0.055) BA-Ema-W-Type Natriuretic Peptide 02015 pg/mL (0-449) Total Protein 8.9 g/dL (6.4-8.2) Albumin 4.1 g/dL (3.4-5.0) Lipase 100 U/L (73-393) Thyroid Stimulating Hormone (TSH) 3.530 uIU/mL (0.358-3.740) Segmented Neutrophils % 89 % (35-66) Lymphocytes % 6 % (24-48) Monocytes % 5 % (0-10) Platelet Estimate Adequate (ADEQUATE) Test 11/18/20 11:15 11/18/20 15:44 11/19/20 00:15 11/19/20 06:09 Prothrombin Time 10.2 SEC (9.4-11.4) Prothromb Time International Ratio 1.0 (0.9-1.1) Activated Partial Thromboplast Time 25 SEC (23-33) 69 SEC (23-33) 29 SEC (23-33) 31 SEC (23-33) White Blood Count 11.8 x10^3/uL (4.0-11.0) Red Blood Count 3.66 x10^6/uL (3.50-5.40) Hemoglobin 11.0 g/dL (12.0-15.5) Hematocrit 33.2 % (36.0-47.0) Mean Corpuscular Volume 91 fL (79-100) Mean Corpuscular Hemoglobin 30 pg (25-35) Mean Corpuscular Hemoglobin Concent 33 g/dL (31-37) Red Cell Distribution Width 13.3 % (11.5-14.5) Platelet Count 170 x10^3/uL (140-400) Neutrophils (%) (Auto) 91 % (31-73) Lymphocytes (%) (Auto) 3 % (24-48) Monocytes (%) (Auto) 5 % (0-9) Eosinophils (%) (Auto) 0 % (0-3) Basophils (%) (Auto) 1 % (0-3) Neutrophils # (Auto) 10.8 x10^3uL (1.8-7.7) Lymphocytes # (Auto) 0.3 x10^3/uL (1.0-4.8) Monocytes # (Auto) 0.6 x10^3/uL (0.0-1.1) Eosinophils # (Auto) 0.0 x10^3/uL (0.0-0.7) Basophils # (Auto) 0.1 x10^3/uL (0.0-0.2) Sodium Level 130 mmol/L (136-145) Potassium Level 3.4 mmol/L (3.5-5.1) Chloride Level 95 mmol/L (98-107) Carbon Dioxide Level 24 mmol/L (21-32) Anion Gap 11 (6-14) Blood Urea Nitrogen 39 mg/dL (7-20) Creatinine 1.2 mg/dL (0.6-1.0) Estimated GFR (Cockcroft-Gault) 42.3 Glucose Level 121 mg/dL (70-99) Calcium Level 8.1 mg/dL (8.5-10.1) Physical Exams HEENT: Neck Supple W Full Motion Chest: Symmetric Lungs: Clear to Auscultation Heart: RRR Abdomen: Soft N/T Extremities: No Edema Neurology: alert, oriented, follow commands Assessment Assessment 1. Generalized weakness, fall. No syncope 2. NSTEMI; trop peak 2.7. On heparin gtt. Possible demand ischemia, but CAD cannot be ruled out. CP free. EKG without any significant acute changes. 3. PAFIB; presently SR. ST noted yesterday evening with some periods of possible AFIB. On low-dose Eliquis for stroke prophylaxis. 4. Chronic diastolic CHF; appears clinically compensated. 5. Hypertension: Controlled 6. CKD 7. SLE 8. Hyponatremia with h/o SIADH Recommendations Continue ASA, metoprolol Lipids Discontinue IV Bumex. Continue heparin gtt through this evening Probable high risk for long-term OAC given weakness and frequent falls. Would recommend ASA therapy only from a CV standpoint. Check echo to assess LV systolic function Conservative management as per patient wishes Supportive care RAMOS STANFORD APRN Nov 19, 2020 07:58
[2020-11-19] MEDS: METOPROLOL TART IMMED RELEASE 50 MG TABLET PO SCH ×2 (08:29→20:11)
[2020-11-19] MEDS: cycloSPORINE 0.05% OPTH 1 DROP DROPERETTE OU SCH ×2 (08:29→20:10)
[2020-11-19] MEDS: POTASSIUM CHLORIDE 20 MEQ TABLET.ER. PO SCH ×2 (08:29→20:10)
[2020-11-19] MEDS: LOSARTAN 50 MG TABLET. PO SCH ×2 (08:29→20:12)
[2020-11-19] MEDS: GABAPENTIN 100 MG CAPSULE. PO SCH ×3 (08:30→20:11)
[2020-11-19] MEDS: ASPIRIN 325 MG TABLET PO SCH (08:30)
[2020-11-19] MEDS: HYDROXYCHLOROQUINE 200 MG TABLET PO SCH ×2 (08:30→20:13)
[2020-11-19] MEDS: PANTOPRAZOLE 40 MG TABLET. PO SCH (08:30)
[2020-11-19] MEDS: BUMETANIDE 1 MG/4 ML VIAL. IVP SCH ×2 (08:30→09:00)
[2020-11-19] MEDS: MEGESTROL 40 MG TABLET. PO SCH ×3 (08:30→20:11)
--- NOTE | 2020-11-19 09:52 | EKG ---
[address] [address] Test Date: 2020-11-17 Test Time: 19:59:34 Pat Name: NEGRO SWANN Department: Room: Gender: F Breadman: [place]LA : 1930 Requested By: JACKELYN KEITH Order Number: [id number] Reading MD: Measurements Intervals [place] Rate: 97 P: 75 CT: 162 QRS: -35 QRSD: 80 T: 51 QT: 374 QTc: 479 Interpretive Statements SINUS RHYTHM ATRIAL PREMATURE COMPLEX(ES) LEFT ATRIAL ABNORMALITY ABNORMAL LEFT AXIS DEVIATION LEFT ANTERIOR FASCICULAR BLOCK PROLONGED QT ABNORMAL ECG RI6.02 No previous ECG available for comparison
[2020-11-19 11:18] VITALS: BP 104/62
[2020-11-19 15:11] VITALS: BP 125/74
[2020-11-19 19:44] VITALS: BP 111/68
[2020-11-19] MEDS: MELATONIN 3 MG TABLET PO SCH (20:11)
--- NOTE | 2020-11-19 22:12 | PN ---
DATE: SUBJECTIVE: An 89-year-old female in with a non-STEMI, had been falling at home. Bruises to the head, but she still seems to be quite appropriate in her affect and baseline. OBJECTIVE: VITAL SIGNS: Blood pressure 125/74, respiratory rate 18, pulse 72, afebrile. GENERAL: The patient is alert and oriented at baseline. LUNGS: Diminished. CARDIOVASCULAR: Regular sinus rhythm. ABDOMEN: Soft, nontender. No rebound or guarding. Positive bowel sounds. ASSESSMENT AND PLAN: The patient is stable in multiple ways and we will go ahead. Hemoglobin down to 11.0 and hematocrit 33. Sodium is still good at 130 for her. She does run low sodium. Cholesterol was basically stable as well. Otherwise, she is doing reasonably well and will continue to be monitored and Cardiology is following her along as well. Non-ST segment elevation myocardial infarction, multiple falls with head contusions, probable mild concussion, no doubt from the falls, but she is baseline stable and severe degenerative changes to her neck as well as a history of chronic SIADH and systemic erythematous lupus, which she takes the anticoagulant for. LEOBARDO DIAZ MD DR: ERROL/shaheen JOB#: [id number] / [id number]
[2020-11-19 23:16] VITALS: BP 145/77
[2020-11-20 06:12] VITALS: BP 166/97
--- NOTE | 2020-11-20 07:47 | PDOC ---
CARDIO Progress Notes Date & Time Date of Service DATE: 11/20/20 TIME: 07:40 Time of Evaluation 07:40 Subjective Notes No chest pain, SOA, dizziness, diaphoresis, or nausea/vomiting. Vitals Vitals Vital Signs Date Time Temp Pulse Resp B/P (MAP) Pulse Ox O2 Delivery O2 Flow Rate FiO2 11/20/20 06:12 97.7 102 16 166/97 (120) 99 Room Air Weight Weight [ ] Input and Output I.O. Intake and Output 11/20/20 07:00 Intake Total 1000 ml Balance 1000 ml Intake Oral 1000 ml # Voids 5 # Bowel Movements 1 Laboratory Labs Laboratory Tests Test 11/18/20 11:15 11/18/20 15:44 11/19/20 00:15 11/19/20 06:09 Prothrombin Time 10.2 SEC (9.4-11.4) Prothromb Time International Ratio 1.0 (0.9-1.1) Activated Partial Thromboplast Time 25 SEC (23-33) 69 SEC (23-33) 29 SEC (23-33) 31 SEC (23-33) White Blood Count 11.8 x10^3/uL (4.0-11.0) Red Blood Count 3.66 x10^6/uL (3.50-5.40) Hemoglobin 11.0 g/dL (12.0-15.5) Hematocrit 33.2 % (36.0-47.0) Mean Corpuscular Volume 91 fL (79-100) Mean Corpuscular Hemoglobin 30 pg (25-35) Mean Corpuscular Hemoglobin Concent 33 g/dL (31-37) Red Cell Distribution Width 13.3 % (11.5-14.5) Platelet Count 170 x10^3/uL (140-400) Neutrophils (%) (Auto) 91 % (31-73) Lymphocytes (%) (Auto) 3 % (24-48) Monocytes (%) (Auto) 5 % (0-9) Eosinophils (%) (Auto) 0 % (0-3) Basophils (%) (Auto) 1 % (0-3) Neutrophils # (Auto) 10.8 x10^3uL (1.8-7.7) Lymphocytes # (Auto) 0.3 x10^3/uL (1.0-4.8) Monocytes # (Auto) 0.6 x10^3/uL (0.0-1.1) Eosinophils # (Auto) 0.0 x10^3/uL (0.0-0.7) Basophils # (Auto) 0.1 x10^3/uL (0.0-0.2) Segmented Neutrophils % 92 % (35-66) Band Neutrophils % 4 % (0-9) Lymphocytes % 2 % (24-48) Monocytes % 2 % (0-10) Toxic Granulation Present Toxic Vacuolation Present Platelet Estimate Adequate (ADEQUATE) Large Platelets Present Ovalocytes Present Sodium Level 130 mmol/L (136-145) Potassium Level 3.4 mmol/L (3.5-5.1) Chloride Level 95 mmol/L (98-107) Carbon Dioxide Level 24 mmol/L (21-32) Anion Gap 11 (6-14) Blood Urea Nitrogen 39 mg/dL (7-20) Creatinine 1.2 mg/dL (0.6-1.0) Estimated GFR (Cockcroft-Gault) 42.3 Glucose Level 121 mg/dL (70-99) Calcium Level 8.1 mg/dL (8.5-10.1) Triglycerides Level 73 mg/dL (0-150) Cholesterol Level 133 mg/dL (0-200) LDL Cholesterol, Calculated 55 mg/dL (0-100) VLDL Cholesterol, Calculated 14 mg/dL (0-40) Non-HDL Cholesterol Calculated 69 mg/dL (0-129) HDL Cholesterol 64 mg/dL (40-60) Cholesterol/HDL Ratio 2.0 Test 11/19/20 13:20 Activated Partial Thromboplast Time 33 SEC (23-33) Physical Exams HEENT: Neck Supple W Full Motion Chest: Symmetric Lungs: Clear to Auscultation Heart: RRR Abdomen: Soft N/T Extremities: No Edema Neurology: alert, oriented, follow commands Assessment Assessment 1. Generalized weakness, fall. No syncope 2. NSTEMI; trop peak 2.7. Treated wtih heparin for > 24hrs. Possible demand ischemia, but CAD cannot be ruled out. CP free. EKG without any significant acute changes. 3. PAFIB; SR. Heart rate mostly controlled, but is mildly elevated occasionally 4. Chronic diastolic CHF; appears clinically compensated. 5. Hypertension: Controlled 6. CKD; Cr stable 7. SLE 8. Hyponatremia with h/o SIADH Recommendations Continue ASA Increase metoprolol for rate control High risk for long-term OAC given weakness and frequent falls. Would recommend discontinuing from a CV standpoint and using ASA only for stroke prophylaxis Echo today to assess LV systolic function Continue conservative management as per patient wishes Follow up with outpatient delivery table feeder as previously scheduled Supportive care RAMOS STANFORD APRN Nov 20, 2020 07:47
[2020-11-20] MEDS: ASPIRIN 325 MG TABLET PO SCH (07:52)
[2020-11-20] MEDS: MEGESTROL 40 MG TABLET. PO SCH ×3 (07:53→21:01)
[2020-11-20] MEDS: POTASSIUM CHLORIDE 20 MEQ TABLET.ER. PO SCH ×2 (07:53→21:01)
[2020-11-20] MEDS: PANTOPRAZOLE 40 MG TABLET. PO SCH (07:53)
[2020-11-20] MEDS: GABAPENTIN 100 MG CAPSULE. PO SCH ×3 (07:53→20:59)
[2020-11-20] MEDS: HYDROXYCHLOROQUINE 200 MG TABLET PO SCH ×2 (07:54→20:59)
[2020-11-20] MEDS: cycloSPORINE 0.05% OPTH 1 DROP DROPERETTE OU SCH ×2 (07:54→20:59)
[2020-11-20] MEDS: LOSARTAN 50 MG TABLET. PO SCH ×2 (07:54→21:00)
[2020-11-20] MEDS: METOPROLOL TART IMMED RELEASE 50 MG TABLET PO SCH ×2 (07:57→21:01)
[2020-11-20 08:36] LABS: BACTERIA,URINE FEW /HPF (0-FEW); BILIRUBIN,URINE NEG (NEG); CLARITY,URINE TURBID; COLOR,URINE YELLOW; GLUCOSE,URINE NEG (NEG); NITRITE,URINE NEG (NEG); SQUAMOUS EPITHELIAL CELL,UR OCC /LPF; UROBILINOGEN,URINE 0.2 mg/dL (0.2 mg/dL); WBC,URINE >40 /HPF (0-4)
[2020-11-20 10:43] VITALS: BP 130/62
[2020-11-20 14:58] VITALS: BP 130/61
--- NOTE | 2020-11-20 16:08 | CARD ---
MR#: [id number] Date of Study: 11/20/2020 Ordering Physician: MONIKA NARAYAN, Referring Physician: MONIKA NARAYAN, Tech: Martha Mcknight APPROVED REPORT EXAM: Two-dimensional and M-mode echocardiogram with Doppler and color Doppler. Other Information Quality : AverageHR: 83bpm INDICATION Cardiac Disease: CAD Congestive Heart Failure Non STEMI RISK FACTORS Hypertension 2D DIMENSIONS RVDd2.1 (2.9-3.5cm)Left Atrium(2D)2.3 (1.6-4.0cm) IVSd1.1 (0.7-1.1cm)Aortic Root(2D)2.9 (2.0-3.7cm) LVDd3.8 (3.9-5.9cm)LVOT Diameter2.0 (1.8-2.4cm) PWd0.9 (0.7-1.1cm)LVDs1.8 (2.5-4.0cm) FS (%) 52.1 %SV52.5 ml LVEF(%)83.8 (>50%) Aortic Valve AoV Peak Devyn.139.7cm/sAoV VTI25.1cm AO Peak GR.7.8mmHgLVOT Peak Devyn.102.3cm/s LVOT VTI 21.61cmAO Mean GR.4mmHg CARLINE (VMAX)2.76mm5BMZ (VTI)2.58cm2 Mitral Valve MV E Ahogwtha16.5cm/sMV E Peak Gr.6mmHg MV DECEL [id number] A Hpxofepm229.6cm/s MV E Mean Gr.2mmHgE/A Ratio0.7 Pulmonary Valve PV Peak Ogjbxkzq53.9cm/sPV Peak Grad.4mmHg Tricuspid Valve TR P. [id number]/sRAP FMNNISHY2blGd TR Peak Gr.49wkNzSVSN55rxKv LEFT VENTRICLE The left ventricle is normal size. There is borderline to mild concentric left ventricular hypertroph y. The left ventricular systolic function is normal. The Ejection Fraction is 60-65%. There is normal LV segmental wall motion. Transmitral Doppler flow pattern is Grade I-abnormal relaxation pattern. RIGHT VENTRICLE The right ventricle is normal size. There is normal right ventricular wall thickness. The right ventr icular systolic function is normal. ATRIA The left atrium size is normal. The right atrium size is normal. The interatrial septum is intact wit h no evidence for an atrial septal defect or patent foramen ovale as noted on 2-D or Doppler imaging. AORTIC VALVE The aortic valve is normal in structure and function. Doppler and Color Flow revealed no significant aortic regurgitation. There is no significant aortic valvular stenosis. Calculated aortic valve area is cm2 with maximum pressure gradient of 8 mmHg and mean pressure gradient of 4 mmHg. MITRAL VALVE The mitral valve is normal in structure and function. There is no evidence of mitral valve prolapse. There is no mitral valve stenosis. Doppler and Color-flow revealed trace mitral regurgitation. TRICUSPID VALVE The tricuspid valve is normal in structure and function. Doppler and Color Flow revealed trace tricus pid regurgitation with an estimated PAP of 27 mmHg. There is no tricuspid valve stenosis. PULMONIC VALVE The pulmonic valve is not well visualized. Doppler and Color Flow revealed trace pulmonic valvular re gurgitation. GREAT VESSELS The aortic root is normal in size. The IVC is normal in size and collapses >50% with inspiration. PERICARDIAL EFFUSION There is no evidence of significant pericardial effusion. Critical Notification Critical Value: No <Conclusion> The left ventricular systolic function is normal. The Ejection Fraction is 60-65%. There is normal LV segmental wall motion. Transmitral Doppler flow pattern is Grade I-abnormal relaxation pattern. Trace mitral regurgitation. Trace tricuspid regurgitation with an estimated PAP of 27 mmHg. There is no evidence of significant pericardial effusion. Signed by : Monika Narayan, Electronically Approved : 11/20/2020 16:07:45
[2020-11-20 19:43] VITALS: BP 145/74
[2020-11-20] MEDS ORDERED: ATORVASTATIN CALCIUM 20 MG TABLET PO SCH (21:00)
[2020-11-20] MEDS: MELATONIN 3 MG TABLET PO SCH (21:01)
--- NOTE | 2020-11-20 21:48 | PN ---
DATE: SUBJECTIVE: An 89-year-old female in with a non-STEMI, heart attack, multiple falls, contusions to her head, seems to be a little bit more alert today and at times somewhat even little bit of confusion from time to time. Her ejection fraction on her echo showed a 60-65% ejection fraction and the patient otherwise seems to be progressing fairly stable. Cardiac consultation noted. OBJECTIVE: VITAL SIGNS: Blood pressure 130/60, respiration 18, pulse 90, afebrile. GENERAL: The patient is alert. Speech fluent, spontaneous, appropriate. LUNGS: Diminished, but clear. CARDIOVASCULAR: Regular sinus rhythm. ABDOMEN: Soft, nontender. 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 PLAN: Continue to monitor. Hopefully, placement in a nursing facility as indicated. LEOBARDO DIAZ MD DR: ERROL/shaheen JOB#: [id number] / [id number]
[2020-11-20 22:31] VITALS: BP 150/77
[2020-11-21 05:25] VITALS: BP 143/74
[2020-11-21] MEDS: PANTOPRAZOLE 40 MG TABLET. PO SCH ×2 (07:30→08:05)
[2020-11-21] MEDS: POTASSIUM CHLORIDE 20 MEQ TABLET.ER. PO SCH ×2 (08:05→09:00)
[2020-11-21] MEDS: LOSARTAN 50 MG TABLET. PO SCH ×2 (08:05→09:00)
[2020-11-21] MEDS: GABAPENTIN 100 MG CAPSULE. PO SCH ×2 (08:06→09:00)
[2020-11-21] MEDS: MEGESTROL 40 MG TABLET. PO SCH ×2 (08:06→09:00)
[2020-11-21] MEDS: HYDROXYCHLOROQUINE 200 MG TABLET PO SCH ×2 (08:06→09:00)
[2020-11-21] MEDS: cycloSPORINE 0.05% OPTH 1 DROP DROPERETTE OU SCH ×2 (08:06→09:00)
[2020-11-21] MEDS: METOPROLOL TART IMMED RELEASE 50 MG TABLET PO SCH ×2 (08:06→09:00)
--- NOTE | 2020-11-21 08:20 | PDOC ---
CARDIO Progress Notes Date & Time Time of Evaluation Vitals Vitals Vital Signs Date Time Temp Pulse Resp B/P (MAP) Pulse Ox O2 Delivery O2 Flow Rate FiO2 11/21/20 08:06 84 143/74 11/21/20 05:25 98.1 20 94 Room Air Weight Weight [ ] Input and Output I.O. Intake and Output 11/21/20 07:00 Intake Total 820 ml Balance 820 ml Intake Oral 820 ml # Voids 7 Laboratory Labs Laboratory Tests Test 11/19/20 13:20 11/20/20 08:10 11/20/20 15:35 Activated Partial Thromboplast Time 33 SEC (23-33) Urine Collection Type Unknown Urine Color Yellow Urine Clarity Turbid Urine pH 6.5 Urine Specific Bethany 1.020 Urine Protein 100 mg/dl (NEG-TRACE) Urine Glucose (UA) Neg mg/dL (NEG) Urine Ketones (Stick) Neg mg/dL (NEG) Urine Blood Mod (NEG) Urine Nitrite Neg (NEG) Urine Bilirubin Neg (NEG) Urine Urobilinogen Dipstick 0.2 mg/dL (0.2 mg/dL) Urine Leukocyte Esterase Large (NEG) Urine RBC 1-2 /HPF (0-2) Urine WBC >40 /HPF (0-4) Urine Squamous Epithelial Cells Occ /LPF Urine Transitional Epithelial Cells Occ /LPF Urine Bacteria Few /HPF (0-FEW) SARS-CoV-2 Antigen (Rapid) Negative (NEGATIVE) Physical Exams HEENT: Neck Supple W Full Motion Chest: Symmetric Lungs: Clear to Auscultation Heart: RRR Abdomen: Soft N/T Extremities: No Edema Neurology: alert, oriented, follow commands RAMOS STANFORD APRN Nov 21, 2020 08:20
[2020-11-21 09:00] VITALS: BP 143/74
[2020-11-21] MEDS ORDERED: CALCIUM CHLORIDE 1,000 MG/10 ML VIAL IV ONE (09:00)
[2020-11-21] MEDS ORDERED: EPINEPHrine SYRINGE 1 MG/10 ML SYRINGE ONE (09:00)
[2020-11-21] MEDS ORDERED: EPINEPHrine 5 MG in IV NORMAL SALINE 250ML 250 ML IV PRN (09:15)
[2020-11-21] MEDS ORDERED: MORPHINE SULFATE 2 MG/ML DISP.SYRIN. IV PRN (09:30)
[2020-11-22] MEDS ORDERED: ASPIRIN ENTERIC COATED 81 MG TABLET.DR. PO SCH (08:00)
--- NOTE | 2020-11-22 21:40 | DS ---
DATE OF DISCHARGE: 11/21/2020 HOSPITAL COURSE: An 89-year-old female who had been falling at home. The patient denied chest pain per se; however, her cardiac enzymes showed an elevation of the troponin, as a result of that Dr. Narayan noted senior power scheduler made the diagnosis of a non-STEMI, as her EKG was basically stable. The patient did have elevated troponins as noted, but she did not wish for any aggressive therapy nor did her family. Her sodium was low, but she has a chronic SIADH syndrome of low sodium. The patient otherwise made good progress during the rest of her hospitalization for a while and then suddenly the patient coded and she was made a no code by the family and she quietly. IMPRESSION: Sudden cardiac arrest, non-ST elevated myocardial infarction, multiple falls at home with contusions to the head, urinary tract infection of Enterococcus faecalis. She was COVID-19 negative. Essential hypertension. The body was declared and removed to the home of the patient's request. LEOBARDO DIAZ MD DR: ERROL/shaheen JOB#: [id number] / [id number]
== END 2020-11-21 10:56 ==
LOC: ER 19:01 → 1 SOUTH 23:00
PROVIDERS: ADMIT Family Medicine; ATTEND Family Medicine
DX: I21.4 Non-ST elevation (NSTEMI) myocardial infarction (principal); I50.32 Chronic diastolic (congestive) heart failure; E22.2 Syndrome of inappropriate secretion of antidiuretic hormone; I13.0 Hypertensive heart and chronic kidney disease with heart failure and stage 1 through stage 4 chronic kidney disease, or unspecified chronic kidney disease; N39.0 Urinary tract infection, site not specified; G89.29 Other chronic pain; I25.10 Atherosclerotic heart disease of native coronary artery without angina pectoris; I46.9 Cardiac arrest, cause unspecified; I48.0 Paroxysmal atrial fibrillation; I49.1 Atrial premature depolarization; I49.3 Ventricular premature depolarization; M19.90 Unspecified osteoarthritis, unspecified site; M32.9 Systemic lupus erythematosus, unspecified; N18.32 Chronic kidney disease, stage 3b; B95.2 Enterococcus as the cause of diseases classified elsewhere; Z20.828 Contact with and (suspected) exposure to other viral communicable diseases; F41.9 Anxiety disorder, unspecified; S00.93XA Contusion of unspecified part of head, initial encounter; W01.0XXA Fall on same level from slipping, tripping and stumbling without subsequent striking against object, initial encounter; Z79.01 Long term (current) use of anticoagulants; Z82.49 Family history of ischemic heart disease and other diseases of the circulatory system; Y93.89 Activity, other specified; Y99.8 Other external cause status; Y92.009 Unspecified place in unspecified non-institutional (private) residence as the place of occurrence of the external cause; Z88.1 Allergy status to other antibiotic agents; Z88.2 Allergy status to sulfonamides; Z88.8 Allergy status to other drugs, medicaments and biological substances
CPT/HCPCS: 36415; 70450; 71045; 72125; 73030; 73562; 80048; 80061; 80076; 81001; 82550; 83690; 83735; 83880; 84443; 84484; 85007; 85025; 85379; 85610; 85730; 87077; 87086; 87186; 87426; 93005; 93306; 94640; 96360; J0171; J1644; J3490; J7120; U0003; 97530; 97535; 99285-25